=== PATIENT | female | born 1940 | race Caucasian/White ===

== ENCOUNTER 2019-01-01 07:57 | Emergency (ER) | payer MEDICARE, BC ==
[2019-01-01 08:04] VITALS: PULSE 60; RESP 18
--- NOTE | 2019-01-01 08:26 | ED ---
General Adult HPI - General Chief complaint: Fall Stated complaint: fall, knee pain Time Seen by Provider: 01/01/19 08:04 Source: patient Mode of arrival: wheelchair - History of Present Illness Initial comments: Dictation was produced using [employer] dictation software. please excuse any grammatical, word or spelling errors. Chief Complaint: 78-year-old female presents with right knee pain. History of Present Illness: She is a 78-year-old female yesterday she was walking up a step. She states there was a cricket step. She states she tripped causing her to fall P she did feel it was motion on her way to the ground. She states she landed in some grass. She was nearly experiencing pain however was able to go about her day. This more she woke up and had severe right knee pain. Patient states she felt like she had to slide her leg in order to use the bathroom. Patient has any knee swelling. She states the pain is mostly in her hamstring area. The ROS documented in this emergency department record has been reviewed and confirmed by me. Those systems with pertinent positive or negative responses have been documented in the HPI. All other systems are other negative and/or noncontributory. PHYSICAL EXAM: General Impression: Alert and oriented x3, not in acute distress HEENT: Normocephalic atraumatic, extra-ocular movements intact, pupils equal and reactive to light bilaterally, mucous membranes moist. Cardiovascular: Heart regular rate and rhythm, S1&S2 audible, no murmurs, rubs or gallops Chest: Lungs clear to auscultation bilaterally, no rhonchi, no wheeze, no rales Abdomen: Bowel sounds present, abdomen soft, non-tender, non-distended, no organomegaly Musculoskeletal: Pulses present and equal in all extremities, no peripheral edema, hypertrophic knee joints bilaterally, no knee effusion, no ecchymoses. Joints are ranged without major pain of the right lower extremity. Motor: no focal deficits noted Neurological: CN II-XII grossly intact, no focal motor or sensory deficits noted Skin: Intact with no visualized rashes Psych: Normal affect and mood ED course: 78-year-old female presents with chief complaint of right knee pain. Vital signs upon arrival are within acceptable limits. X-rays were obtained. Pelvis x-ray showed questionable impaction fracture of the right hip. Radiology recommended two-view or dedicated films. Knee x-ray showed mild track heart apartment no arthrosis and small suprapatellar joint effusion. There is slight irregularity to the medial tibial which may relate to fracture. Given these unclear findings on plain films. Lower extremity CT was obtained showing no acute fracture dislocation to the right femur or proximal tibia patient is symptomatic. Patient placed in knee immobilizer. She states she has a walker that she has at work. Patient clear for discharge. Patient is weightbearing as tolerated. Follow-up with primary care physician upon discharge. - Related Data Home Medications Medication Instructions Recorded Confirmed Apixaban [Eliquis] 5 mg PO BID 01/01/19 01/01/19 Ascorbic Acid [Vitamin C] 500 mg PO DAILY 01/01/19 01/01/19 Carvedilol [Coreg] 6.25 mg PO BID 01/01/19 01/01/19 Digoxin [Lanoxin] 125 mcg PO BID 01/01/19 01/01/19 Ferrous Sulfate [Feosol] 325 mg PO DAILY 01/01/19 01/01/19 Folic Acid 0.4 mg PO DAILY 01/01/19 01/01/19 Isosorbide Mononitrate ER [Imdur] 30 mg PO BID 01/01/19 01/01/19 Lisinopril [Zestril] 5 mg PO QAM 01/01/19 01/01/19 Multivitamins, Thera [Multivitamin 1 tab PO DAILY 01/01/19 01/01/19 (formulary)] Qzmlcnpq-[id number]-Tecjsbbt 1 drops BOTH EYES DAILY PRN 01/01/19 01/01/19 [Maxitrol Ophth Susp] Nitroglycerin Sl Tabs [Nitrostat] 0.4 mg SUBLINGUAL Q5M PRN 01/01/19 01/01/19 predniSONE 5 mg PO DAILY 01/01/19 01/01/19 Allergies Allergy/AdvReac Type Severity Reaction Status Date / Time No Known Allergies Allergy Verified 01/01/19 08:55 Review of Systems ROS Statement: Those systems with pertinent positive or pertinent negative responses have been documented in the HPI. ROS Other: All systems not noted in ROS Statement are negative. Past Medical History Past Medical History: Myocardial Infarction (AL) History of Any Multi-Drug Resistant Organisms: None Reported Past Surgical History: Bariatric Surgery, Pacemaker Past Psychological History: No Psychological Hx Reported Smoking Status: Never smoker Past Alcohol Use History: None Reported Past Drug Use History: None Reported Course Vital Signs 01/01/19 08:00 Temperature 98.5 F Pulse Rate 60 Respiratory 18 Rate Blood Pressure 117/54 O2 Sat by Pulse 99 Oximetry Disposition Clinical Impression: Knee strain Disposition: HOME SELF-CARE Condition: Good Instructions (If sedation given, give patient instructions): Fall Prevention for Older Adults (ED) Is patient prescribed a controlled substance at d/c from ED?: No Referrals: None,Stated [Primary Care Provider] - 1-2 days Time of Disposition: 10:17
--- NOTE | 2019-01-01 08:52 | XR ---
EXAMINATION TYPE: XR knee complete RT DATE OF EXAM: 01/01/2019 CLINICAL HISTORY: Right knee pain TECHNIQUE: Three views of the right knee are obtained. COMPARISON: None. FINDINGS: There is no acute fracture/dislocation evident in right knee. Well-corticated of the medi al tibia approximately 1 cm distal to the tibial plateau could relate to sequela of prior fracture. D iffuse osseous demineralization is seen. Tri-compartment joint spaces demonstrate small marginal oste ophytes. Small suprapatellar joint effusion is seen. IMPRESSION: 1. No acute fracture or dislocation in the right knee. 2. Mild tricompartmental arthrosis and small suprapatellar joint effusion. 3. Cortical irregularity of the medial tibial may relate to prior fracture deformity although insuffi ciency fracture is possible given the diffuse osseous demineralization and can be further evaluated w ith MRI.
--- NOTE | 2019-01-01 09:05 | XR ---
EXAMINATION TYPE: XR pelvis AP view DATE OF EXAM: 01/01/2019 CLINICAL HISTORY: Fall with right-sided pelvic pain TECHNIQUE: A single AP view of the pelvis is obtained. COMPARISON: None. FINDINGS: Medial femoral necks sclerosis and cortical overlap of the lateral femoral head and junctio n are cemented relate to a mild impacted fracture deformity. Moderate bilateral femoral acetabular ar thropathy is seen as there are subchondral cysts and acetabular sourcil bilaterally and small margina l osteophytes. There is generalized osseous demineralization. Numerous surgical clips are noted withi n the pelvis. No additional suspected fracture seen of the pelvis. No sacroiliac joint space widening . IMPRESSION: Questionable impaction fracture of the right hip. 2 views of the right hip are recommend ed for evaluation.
[2019-01-01] MEDS ORDERED: KETOROLAC 30 MG/ML 1 ML VIAL IM STA (09:40)
--- NOTE | 2019-01-01 09:51 | CT ---
EXAMINATION TYPE: CT lower extremity RT wo con DATE OF EXAM: 01/01/2019 COMPARISON: Pelvic and right knee x-ray earlier today HISTORY: Right hip and knee pain post fall. Abnormal xrays hip and knee CT DLP: 568 mGycm Automated exposure control for dose reduction was used. FINDINGS: No acute fracture or dislocation is seen in the right hip with particular attention to the right femo ral neck at area of x-ray concern including subcapital level. There is redemonstration of mild to mod erate axial joint space loss. There are well-defined ossific fragments from the greater tuberosity co uld reflect product of degenerative change. Right thigh muscle bulk is maintained. No suspicious groi n adenopathy or hernia is seen. Remainder of right femur shows no acute fracture. Demineralization is present. There is mild to moder ate tricompartment joint space loss in the knee with small suprapatellar joint effusion confirmed. No acute fracture is evident with particular attention to the proximal right tibia. There is partial visualization of surgical sutures in the anterior right pelvis. Uterus is surgically absent or atrophic in appearance. IMPRESSION: No acute fracture or dislocation in the right femur.
[2019-01-01 10:37] VITALS: BP 109/56; TEMP 98.3
[2019-01-01] MEDS ORDERED: KETOROLAC 30 MG/ML 1 ML VIAL IVP SCH (12:00)
== END 2019-01-01 10:37 | disposition home or self-care (01) ==
LOC: EC 07:57
DX: S86.911A Strain of unspecified muscle(s) and tendon(s) at lower leg level, right leg, initial encounter (principal); I25.2 Old myocardial infarction; Z95.0 Presence of cardiac pacemaker; Z79.01 Long term (current) use of anticoagulants; Z79.52 Long term (current) use of systemic steroids; Z79.899 Other long term (current) drug therapy; W10.9XXA Fall (on) (from) unspecified stairs and steps, initial encounter; Y93.01 Activity, walking, marching and hiking
CPT/HCPCS: 72170; 73562; 73700; 99284; 96372; J1885